=== PATIENT | male | born 1930 | race Caucasian/White ===

== ENCOUNTER → 2020-07-13 | Outpatient (CLI) | payer OTHER ==
[~2020-07-13] MED LIST: ALDACTONE 25MG25 MG PO; AMLODIPINE BESYL5 MG PO; ATORVASTATIN CA10 MG PO; CARTIA XT300 MG PO; CLONIDINE1 EAC2 TD; FUROSEMIDE40 MG PO; GABAPENTIN300 MG PO; HUMALOG100 UNIT/3 SC; HYDRALAZINE HCL50 MG PO; LANTUS SOL100 UNIT/1 SQ; MEMANTINE HCL E28 MG PO; OMEPRAZOLE40 MG PO; PROSCAR5 MG PO; TAMSULOSIN HCL0.4 MG PO; WARFARIN SODIUM4 MG PO
== END ==
LOC: EXRD 13:15 → US 14:00
DX: R60.0 Localized edema (principal); I73.9 Peripheral vascular disease, unspecified
CPT/HCPCS: 93925; 93970

== ENCOUNTER 2020-10-08 15:07 | Inpatient (IN) | payer OTHER ==
[~2020-10-08] VITALS: Ht 177.8 cm; Wt 86.3 kg
[2020-10-08 16:45] LABS: HEMOGLOBIN 11.2 gm/dl (14.0-17.5); RED BLOOD COUNT 3.52 M/UL (4.20-5.50); WHITE BLOOD COUNT 4.6 K/UL (4.5-11.0)
[2020-10-08 17:05] LABS: BUN/CREATININE RATIO 28 (0-10)
[2020-10-08] MEDS ORDERED: LANTUS SOL100 UNIT/1 SQ (22:21)
[2020-10-08] MEDS ORDERED: HUMALOG100 UNIT/3 SC (22:22)
[2020-10-08] MEDS ORDERED: ALDACTONE 25MG25 MG PO (22:24)
[2020-10-08] MEDS ORDERED: CARTIA XT300 MG PO (22:24)
[2020-10-08] MEDS ORDERED: HYDRALAZINE HCL50 MG PO (22:30)
[2020-10-08] MEDS ORDERED: ATORVASTATIN CA10 MG PO (22:31)
[2020-10-08] MEDS ORDERED: WARFARIN SODIUM4 MG PO (22:33)
[2020-10-08] MEDS ORDERED: FUROSEMIDE40 MG PO (22:34)
[2020-10-08] MEDS ORDERED: OMEPRAZOLE40 MG PO (22:35)
[2020-10-08] MEDS ORDERED: GABAPENTIN300 MG PO (22:35)
[2020-10-08] MEDS ORDERED: CLONIDINE1 EAC2 TD (22:36)
[2020-10-08] MEDS ORDERED: TAMSULOSIN HCL0.4 MG PO (22:37)
[2020-10-08] MEDS ORDERED: AMLODIPINE BESYL5 MG PO (22:38)
[2020-10-08] MEDS ORDERED: PROSCAR5 MG PO (22:41)
[2020-10-08] MEDS ORDERED: MEMANTINE HCL E28 MG PO (22:42)
[2020-10-09 06:47] LABS: HEMOGLOBIN 12.1 gm/dl (14.0-17.5); RED BLOOD COUNT 3.84 M/UL (4.20-5.50)
[2020-10-09 06:56] LABS: WHITE BLOOD COUNT 5.9 K/UL (4.5-11.0)
[2020-10-10 03:47] LABS: HEMOGLOBIN 11.5 gm/dl (14.0-17.5); RED BLOOD COUNT 3.71 M/UL (4.20-5.50); WHITE BLOOD COUNT 6.3 K/UL (4.5-11.0)
[2020-10-10] MEDS ORDERED: FUROSEMIDE40 MG PO (10:46)
== END 2020-10-11 17:30 | disposition home or self-care (01) | DRG 291 ==
LOC: ER1 15:07 → CDU 20:12 → PROG CARE 20:12
PROVIDERS: Internal Medicine; Physician Assistant; ADMIT Internal Medicine
PROC: B24BZZ4 Ultrasonography of Heart with Aorta, Transesophageal (ICD-10-PCS; principal; 2020-10-10)
DX: I13.0 Hypertensive heart and chronic kidney disease with heart failure and stage 1 through stage 4 chronic kidney disease, or unspecified chronic kidney disease (principal); J96.21 Acute and chronic respiratory failure with hypoxia; Z20.822 Contact with and (suspected) exposure to COVID-19; N18.4 Chronic kidney disease, stage 4 (severe); N17.9 Acute kidney failure, unspecified; I48.19 Other persistent atrial fibrillation; I50.9 Heart failure, unspecified; E11.22 Type 2 diabetes mellitus with diabetic chronic kidney disease; E78.5 Hyperlipidemia, unspecified; D63.1 Anemia in chronic kidney disease; I27.20 Pulmonary hypertension, unspecified; I08.3 Combined rheumatic disorders of mitral, aortic and tricuspid valves; J84.10 Pulmonary fibrosis, unspecified; I48.91 Unspecified atrial fibrillation; Z79.01 Long term (current) use of anticoagulants; Z85.038 Personal history of other malignant neoplasm of large intestine; Z90.49 Acquired absence of other specified parts of digestive tract; Z88.8 Allergy status to other drugs, medicaments and biological substances; Z88.6 Allergy status to analgesic agent; Z79.4 Long term (current) use of insulin; Z83.3 Family history of diabetes mellitus; Z99.81 Dependence on supplemental oxygen
CPT/HCPCS: ECHO; 36415; 71045; 71250; 80048; 80053; 82550; 82553; 82962; 83735; 83874; 83880; 84484; 85025; 85610; 93005; 93306; 97116; 97161; 99285; J1644; J1940; U0002

== ENCOUNTER → 2020-10-18 | Outpatient (CLI) | payer OTHER | LOC: KOH-I 12:51 | DX: M54.5 Low back pain (principal); M47.818 Spondylosis without myelopathy or radiculopathy, sacral and sacrococcygeal region; M51.36 Other intervertebral disc degeneration, lumbar region | CPT/HCPCS: 72100; 72220 ==

== ENCOUNTER → 2020-11-11 | Outpatient (CLI) | payer OTHER | LOC: HEART 5 10:56 | DX: R06.02 Shortness of breath (principal); I50.9 Heart failure, unspecified | CPT/HCPCS: 94010 ==

== ENCOUNTER → 2021-03-23 | Outpatient (CLI) | payer OTHER ==
[~2021-03-23] MED LIST changes: +HYDROCODON-ACE1 EAC4 PO
== END ==
LOC: KOH-I 12:12
DX: M54.50 Low back pain, unspecified (principal); S22.088A Other fracture of T11-T12 vertebra, initial encounter for closed fracture
CPT/HCPCS: 72100

== ENCOUNTER 2021-03-24 13:43 | Emergency (ER) | payer OTHER ==
[~2021-03-24 13:43] MED LIST changes: -HYDROCODON-ACE1 EAC4 PO
[2021-03-24] MEDS ORDERED: HYDROCODON-ACE1 EAC4 PO (15:01)
== END 2021-03-24 15:30 | disposition home or self-care (01) ==
LOC: ER1 13:43
DX: S22.089A Unspecified fracture of T11-T12 vertebra, initial encounter for closed fracture (principal); W19.XXXA Unspecified fall, initial encounter; Y92.009 Unspecified place in unspecified non-institutional (private) residence as the place of occurrence of the external cause
CPT/HCPCS: 72100; 99283

== ENCOUNTER → 2021-04-02 | Outpatient (CLI) | payer OTHER ==
[~2021-04-02] MED LIST changes: +HYDROCODON-ACE1 EAC4 PO
== END ==
LOC: MRI 12:40 → EMI 04-04 16:00
DX: S22.080A Wedge compression fracture of T11-T12 vertebra, initial encounter for closed fracture (principal)
CPT/HCPCS: 72146

== ENCOUNTER 2021-04-08 10:39 | Inpatient (IN) | payer OTHER ==
[~2021-04-08] VITALS: Ht 177.8 cm; Wt 76.4 kg
[~2021-04-08 10:39] MED LIST changes: +FLOMAX 0.4 MG0.4 MG PO; -HUMALOG100 UNIT/3 SC; +HUMALOG100 UNIT/3 SQ; +HYDRALAZINE HC100 MG PO; -HYDRALAZINE HCL50 MG PO; -TAMSULOSIN HCL0.4 MG PO
[2021-04-08 12:23] LABS: HEMOGLOBIN 11.9 gm/dl (14.0-17.5); RED BLOOD COUNT 3.66 M/UL (4.20-5.50); WHITE BLOOD COUNT 4.3 K/UL (4.5-11.0)
[2021-04-08] MEDS ORDERED: WARFARIN SODIUM6 MG PO (15:53)
[2021-04-08] MEDS ORDERED: MEGACE TAB 40 M40 MG PO (15:56)
[2021-04-08] MEDS ORDERED: NAMENDA XR28 MG PO (15:57)
[2021-04-08] MEDS ORDERED: ENDOCET 5-3251 EACH PO (15:57)
[2021-04-08] MEDS ORDERED: EPLERENONE25 MG PO (15:58)
[2021-04-08] MEDS ORDERED: CLONIDINE1 EAC2 TD (15:58)
[2021-04-08] MEDS ORDERED: FERROUS SULFAT324 MG PO (15:58)
[2021-04-09 05:53] LABS: HEMOGLOBIN 12.3 gm/dl (14.0-17.5); RED BLOOD COUNT 3.76 M/UL (4.20-5.50)
[2021-04-10 03:47] LABS: HEMOGLOBIN 11.6 gm/dl (14.0-17.5); RED BLOOD COUNT 3.61 M/UL (4.20-5.50); WHITE BLOOD COUNT 3.6 K/UL (4.5-11.0)
[2021-04-11 05:47] LABS: HEMOGLOBIN 12.2 gm/dl (14.0-17.5); RED BLOOD COUNT 3.75 M/UL (4.20-5.50)
[2021-04-11 05:49] LABS: WHITE BLOOD COUNT 6.1 K/UL (4.5-11.0)
[2021-04-12 06:40] LABS: HEMOGLOBIN 11.7 gm/dl (14.0-17.5); RED BLOOD COUNT 3.65 M/UL (4.20-5.50); WHITE BLOOD COUNT 6.3 K/UL (4.5-11.0)
--- NOTE | 2021-04-12 10:44 | NUR ---
RECIEVED A CALL FROM TELE REGARDING TWO RUNS OF A FIVE SECOND DROP OF BRADYCARDIA THEN BACK INTO SINUS RHYTHM. I NOTIFIED DR. LANGSTON REGARDING THE PATIENTS CONDITION. MD AWARE OF PATIENTS CURRENT STATUS AND CURRENT MEDICATIONS. MD ORDERED TO CONTINUE TO OBSERVE PATIENT AND NOTIFY IF ANY SUBSTANTIAL CHANGES. WILL CONTINUE TO MONITOR PATIENT. I NOTIFIED
--- NOTE | 2021-04-12 14:17 | NUR ---
WHILE ROUNDING ON MY PATIENT, HE STATES THAT "I AM HAVING A HARD TIME MOVING MY BOWELS, CAN I GET SOMETHING TO HELP ME?" I NOTIFIED DR. LANGSTON AND HE ORDERED MILK OF MAGNESIUM 30MG PO DAILY PRN. ADMINISTERED DOSE AND WILL CONTINUE TO MONITOR PATIENT.
[2021-04-12] MEDS ORDERED: MEDROL DOSEPAK 24 MG PO (16:14)
[2021-04-12] MEDS ORDERED: OMNICEF 300 MG300 MG PO (16:14)
== END 2021-04-12 18:37 | disposition home health service (06) | DRG 177 ==
LOC: ER1 10:39 → CDU 13:53 → PROG CARE 04-09 14:30 → MED SURG 4 04-10 12:54 → PROG CARE 04-10 12:54 → MED SURG 4 04-10 18:43
PROVIDERS: Physician Assistant; Physician Assistant Medical; ADMIT Internal Medicine
PROC: B24BZZZ Ultrasonography of Heart with Aorta (ICD-10-PCS; principal; 2021-04-10)
PROC: 8E0ZXY6 Isolation (ICD-10-PCS; 2021-04-10)
PROC: XW033E5 Introduction of Remdesivir Anti-infective into Peripheral Vein, Percutaneous Approach, New Technology Group 5 (ICD-10-PCS; 2021-04-10)
PROC: 3E0333Z Introduction of Anti-inflammatory into Peripheral Vein, Percutaneous Approach (ICD-10-PCS; 2021-04-10)
DX: U07.1 COVID-19 (principal); J12.82 Pneumonia due to coronavirus disease 2019; I50.23 Acute on chronic systolic (congestive) heart failure; J15.9 Unspecified bacterial pneumonia; J96.21 Acute and chronic respiratory failure with hypoxia; I13.0 Hypertensive heart and chronic kidney disease with heart failure and stage 1 through stage 4 chronic kidney disease, or unspecified chronic kidney disease; N18.4 Chronic kidney disease, stage 4 (severe); M48.54XA Collapsed vertebra, not elsewhere classified, thoracic region, initial encounter for fracture; N17.9 Acute kidney failure, unspecified; I35.2 Nonrheumatic aortic (valve) stenosis with insufficiency; I48.91 Unspecified atrial fibrillation; E78.5 Hyperlipidemia, unspecified; Z79.01 Long term (current) use of anticoagulants; Z85.038 Personal history of other malignant neoplasm of large intestine; Z85.89 Personal history of malignant neoplasm of other organs and systems; Z90.89 Acquired absence of other organs; Z98.890 Other specified postprocedural states; Z88.8 Allergy status to other drugs, medicaments and biological substances; Z83.3 Family history of diabetes mellitus; Z79.4 Long term (current) use of insulin; Z79.899 Other long term (current) drug therapy
CPT/HCPCS: ECHO; 36415; 71045; 80048; 80053; 81001; 82550; 82553; 82565; 82962; 83735; 83874; 83880; 84484; 85025; 85027; 85610; 93005; 93306; 96374; 96375; 96376; 97162; 99285; G0378; J0248; J0456; J0696; J1100; J1940; J7030; P9047; U0002

== ENCOUNTER → 2021-04-18 | Day surgery (SDC) | payer OTHER ==
[~2021-04-18] MED LIST changes: +ENDOCET 5-3251 EACH PO; +EPLERENONE25 MG PO; +FERROUS SULFAT324 MG PO; +MEDROL DOSEPAK 24 MG PO; +MEGACE TAB 40 M40 MG PO; +NAMENDA XR28 MG PO; +OMNICEF 300 MG300 MG PO; +WARFARIN SODIUM6 MG PO
[2021-04-18 07:09] LABS: HEMOGLOBIN 12.7 gm/dl (14.0-17.5); RED BLOOD COUNT 3.93 M/UL (4.20-5.50); WHITE BLOOD COUNT 8.1 K/UL (4.5-11.0)
== END | disposition home or self-care (01) ==
LOC: OR 05:56
PROVIDERS: Orthopaedic Surgery
DX: M80.88XA Other osteoporosis with current pathological fracture, vertebra(e), initial encounter for fracture (principal); U07.1 COVID-19; J12.82 Pneumonia due to coronavirus disease 2019; I11.0 Hypertensive heart disease with heart failure; I50.9 Heart failure, unspecified; E78.5 Hyperlipidemia, unspecified; N28.9 Disorder of kidney and ureter, unspecified; I48.91 Unspecified atrial fibrillation; K21.9 Gastro-esophageal reflux disease without esophagitis; E11.9 Type 2 diabetes mellitus without complications; Z79.01 Long term (current) use of anticoagulants; Z79.4 Long term (current) use of insulin; Z79.1 Long term (current) use of non-steroidal anti-inflammatories (NSAID); Z79.899 Other long term (current) drug therapy; Z85.818 Personal history of malignant neoplasm of other sites of lip, oral cavity, and pharynx; Z90.49 Acquired absence of other specified parts of digestive tract
CPT/HCPCS: 36415; 71045; 80048; 82962; 85027; 85610; 85730; 86850; 86900; 86901; C1713; J0690; J1100; J2001; J2405; J3010; J7120; Q9967

== ENCOUNTER 2021-04-20 11:35 | Emergency (ER) | payer OTHER ==
[2021-04-20 16:53] LABS: HEMOGLOBIN 12.6 gm/dl (14.0-17.5); RED BLOOD COUNT 3.81 M/UL (4.20-5.50)
[2021-04-20 17:02] LABS: WHITE BLOOD COUNT 12.2 K/UL (4.5-11.0)
== END 2021-04-20 17:45 | disposition home or self-care (01) ==
LOC: ER1 11:35
PROVIDERS: Physician Assistant
DX: S22.41XA Multiple fractures of ribs, right side, initial encounter for closed fracture (principal); S51.011A Laceration without foreign body of right elbow, initial encounter; I13.10 Hypertensive heart and chronic kidney disease without heart failure, with stage 1 through stage 4 chronic kidney disease, or unspecified chronic kidney disease; N18.9 Chronic kidney disease, unspecified; E11.22 Type 2 diabetes mellitus with diabetic chronic kidney disease; Z79.4 Long term (current) use of insulin; W19.XXXA Unspecified fall, initial encounter; Y92.009 Unspecified place in unspecified non-institutional (private) residence as the place of occurrence of the external cause
CPT/HCPCS: 71111; 71250; 73080; 80053; 82962; 85025; 90471; 90715; 99284

== ENCOUNTER 2021-04-23 15:27 | Emergency (ER) | payer OTHER | END 2021-04-23 17:20 | disposition E | LOC: ER1 15:27 | DX: I46.9 Cardiac arrest, cause unspecified (principal); I48.91 Unspecified atrial fibrillation; J44.9 Chronic obstructive pulmonary disease, unspecified; Z86.16 Personal history of COVID-19 | CPT/HCPCS: 92950; 99285; J0171 ==